=== PATIENT | female | born 1955 | race Caucasian/White ===

== ENCOUNTER → 2019-05-14 12:08 | Outpatient (CLI) | payer OTHER, SELFPAY ==
--- NOTE | 2019-05-14 12:10 | DI.RAD.S_ITS ---
PROCEDURE: XR LUMBAR SPINE MIN 4V INDICATIONS: Right L5 radic TECHNIQUE: 5 views of the lumbar spine were acquired. COMPARISON: Outside Facility, [facility], MRI L-SPINE W/O CONTRAST, 04/02/2017, 14:54. FINDINGS: Bones: 5 nonrib-bearing vertebrae are present. There is normal bony alignment. No vertebral body compression fractures. No suspicious bony lesions. There is a near severe degree of degenerative disc disease and facet osteoarthritis at L5-S1 and a moderate degree of such degeneration more superiorly. This has not appreciably worsened from the available comparison spine MRI from 04/02/17. Soft tissues: Overlying bowel gas pattern is normal. No suspicious soft tissue calcifications. Oblique images: No pars defects. IMPRESSION: Moderate stable appearing degenerative disc disease and facet osteoarthritis along the lumbosacral spine from 2017, with a greater degree of near severe disc disease and facet osteoarthritis at L5-S1 also previously documented by MR scanning in 2017. No compression fracture has developed. Dictated by: Bhavesh Urbano M.D. on 05/14/2019 at 14:10 Approved by: Bhavesh Urbano M.D. on 05/14/2019 at 14:12
== END ==
PROVIDERS: PCP Nurse Practitioner Family; Visit Provider Physical Medicine & Rehabilitation
DX: M51.17 Intervertebral disc disorders with radiculopathy, lumbosacral region (principal); M47.27 Other spondylosis with radiculopathy, lumbosacral region; M96.1 Postlaminectomy syndrome, not elsewhere classified
CPT/HCPCS: 72110